=== PATIENT | male | born 1960 | race Caucasian/White ===

== ENCOUNTER → 2018-03-18 10:13 | Outpatient (CLI) | payer OTHER, SELFPAY ==
--- NOTE | 2018-03-18 10:20 | XR_ITS ---
XR shoulder LT min 2V HISTORY: ITS.REASON: left shoulder pain ORDERING PHYSICIAN: Yung Goodwin MD PATIENT AGE: 57 years COMPARISON: FINDINGS: No fracture or dislocation. No lytic or blastic change. There is normal mineralization. The joint spaces are well-preserved. No significant degenerative/arthritic changes. No erosive changes evident. There is a bone plate over the lower cervical spine IMPRESSION: Negative, no acute finding
== END ==
PROVIDERS: PCP Family Medicine; Visit Provider Orthopaedic Surgery
DX: M54.12 Radiculopathy, cervical region (principal); M25.512 Pain in left shoulder
CPT/HCPCS: 73030